=== PATIENT | female | born 1975 | race Caucasian/White ===

== ENCOUNTER 2024-02-21 22:03 | Emergency (ER) | payer MEDICAID ==
[~2024-02-21] VITALS: Ht 157.5 cm; Wt 73.0 kg
[2024-02-21 22:09] VITALS: TEMP 98.2; O2SAT 96
[2024-02-21] MEDS: LIDOCAINE 5% PATCH TOP SCH (22:45)
[2024-02-21] MEDS: KETOROLAC 15MG/ML VIAL IM ONE (22:45)
[2024-02-22] MEDS ORDERED: IBUP-2029 MT (03:58)
[2024-02-22 04:32] VITALS: BP 99/54; PULSE 68; RESP 17; O2SAT 99
== END 2024-02-22 04:34 | disposition home or self-care (01) ==
LOC: ER 22:03
DX: M54.50 Low back pain, unspecified (principal); E11.9 Type 2 diabetes mellitus without complications; E78.5 Hyperlipidemia, unspecified; F19.90 Other psychoactive substance use, unspecified, uncomplicated
CPT/HCPCS: 99285; 71045; 73502; 73030; 96372; 72192; J1885